=== PATIENT | female | born 1930 | race Caucasian/White ===

== ENCOUNTER 2017-04-23 12:04 | Outpatient (CLI) | payer MEDICARE ==
[~2017-04-23 12:04] MED LIST: Gadobenate Dimeglumine 529 MG/1 ML (20ML VIAL) ONE
--- NOTE | 2017-04-23 15:28 | MRI ---
MRI CERVICAL SPINE NONCONTRAST: HISTORY: Neck pain. Gait and balance abnormalities. FINDINGS: Vertebral body heights are maintained. There is desiccation of all the intervertebral disks. C2-C3: Mild osteophytosis is present. There is mild right and moderate left foraminal stenosis. C3-C4: There is disk space narrowing and minimal degenerative spondylolisthesis. Posterior osteophy te/disk complex effaces the ventral aspect of the thecal sac and contacts but does not significantly compress the spinal cord. Uncovertebral and facet hypertrophy result in moderate right and severe le ft foraminal stenoses. C4-C5: Posterior osteophyte/disk complex slightly effaces the ventral aspect of the thecal sac and s glenn cord. No abnormal signal is apparent within the spinal cord. Uncovertebral and facet hypertro phy result in moderate left foraminal stenosis. C5-C6: There is disk space narrowing. Posterior osteophyte/disk complex slightly flattens the right ventral aspect of the thecal sac and spinal cord. No abnormal signal is apparent within the cord. Uncovertebral and facet hypertrophy result in severe right and mild to moderate left foraminal stenos is. C6-C7: There is disk space narrowing and posterior osteophyte/disk complex with effacement of the th ecal sac but no effect upon the spinal cord. Uncovertebral and facet hypertrophy result in moderate to severe right and moderate left foraminal stenosis. C7-T1: There is minimal degenerative spondylolisthesis. The central canal and neural foramina are p atent. IMPRESSION: 1. Prominent multilevel degenerative changes throughout the spinal cord, with central canal and fora ronni stenosis, as detailed above. If radicular symptoms are present, please consider a neurosurgica l evaluation. 2. No evidence of myelomalacia. POS: [facility]
--- NOTE | 2017-04-23 15:39 | MRI ---
MRI LUMBAR SPINE NONCONTRAST: HISTORY: Gait and balance abnormalities. Back pain. FINDINGS: Radiographs are not available for direct correlation; therefore, the lowest lumbar type vertebra will be designated as L5, with the remainder numbered accordingly. The conus medullaris has a normal henry earance. Degenerative changes of the lower thoracic spine are partially visualized. T12-L1: There is disk space narrowing. Posterior disk bulge and circumferential degenerative change s result in mild stenosis of the central canal and each neural foramen. L1-L2: There is disk space narrowing. Posterior disk bulge and circumferential degenerative changes result in moderate stenosis of the central canal and each neural foramen. L2-L3: Mild chronic appearing compression of the L3 superior endplate results in loss of height ante riorly by approximately 30%. No residual edema is apparent. posterior disk bulge and circumferentia l degenerative changes result in very severe stenosis of the central canal and severe stenosis of eac h neural foramen. L3-L4: There is disk space narrowing and minimal degenerative spondylolisthesis. Posterior disk bul ge and circumferential degenerative changes result in severe stenosis of the central canal and each n eural foramen. L4-L5: There is disk space narrowing. Posterior disk bulge, along with facet joint hypertrophy and ligamentous thickening, result in severe stenosis of the central canal and each neural foramen. L5-S1: There is disk space narrowing. Posterior disk bulge, along with facet joint hypertrophy and ligamentous thickening, result in moderate stenosis of the central canal. There is moderate right an d severe left foraminal stenoses. IMPRESSION: 1. Severe multilevel degenerative changes throughout the lumbar spine, with central canal and forami nal stenosis as detailed above. Please consider neurosurgical evaluation. 2. Mild chronic appearing compression of the L3 superior endplate. POS: [facility]
--- NOTE | 2017-04-23 15:39 | RAD ---
LUMBAR SPINE RADIOGRAPHS FOUR VIEWS: 04/23/17 PROVIDED CLINICAL HISTORY: Lumbar radiculopathy. FINDINGS: Five nonribbearing lumbar type vertebral bodies are present. There is age indeterminate compression deformity involving the L3 vertebral body. There is slight anterolisthesis of L3 on L4 in flexion, wh ich appears to reduce with extension and neutral positioning. No additional abnormal translational mo tion is evident. There is diffuse loss of disc space height with end plate degenerative change. Multi level lumbar facet degenerative changes are seen. Atherosclerosis is noted. Pedicles appear intact. IMPRESSION: 1. Age indeterminate superior end plate compression deformity of L3. 2. Multilevel lumbar disc and facet degenerative change. POS: [facility]
--- NOTE | 2017-04-23 15:47 | MRI ---
MRI THORACIC SPINE: Date: 04-23-17 Provided Clinical History: Thoracic radiculopathy. FINDINGS: Thoracic alignment appears normal. Vertebral body heights appear preserved. No focal concerning regio nal marrow abnormality. The thoracic spinal cord demonstrates normal signal and morphology. There are broad based disc bulges at T11-12 and T12-L1 associated with mild central canal stenosis. There is n o significant foraminal narrowing apparent. IMPRESSION: Lower lumbar thoracic degenerative changes with mild associated central canal stenosis. POS: [facility]
--- NOTE | 2017-04-23 15:52 | MRI ---
BRAIN MRI WITH AND WITHOUT CONTRAST: HISTORY: Meniere's disease. Frequent and multiple falls. COMPARISON: 06/27/2014 TECHNIQUE: A brain MRI is performed with and without intravenous Gadolinium administration. Multisequential, mu ltiplanar imaging is performed. FINDINGS: There is hypointensity along the anterior right frontal lobe and anterior right temporal pole, along the posterior right corpus callosum and adjacent to the medial aspect of the posterior body of the ri ght lateral ventricle. These areas of hypointensity are not present on the prior examination and may represent hemosiderin from previous insult. An additional area of hemosiderin may be present in the right subinsular region. Acute parenchymal hemorrhage is not appreciated. There is no parenchymal mass, mass effect, or midline shift. Age appropriate atrophy. Cortical perdomo white matter differentiation is preserved. Ventricles and sulci are patent and symmetric. The ventricular system is slightly greater than expec landon for the patient's age. Correlate for normal pressure hydrocephalus. On the axial T2 and FLAIR sequence, there are white matter hyperintensities, which are presumed to be due to chronic small vessel ischemic change. A component of transependymal flow of CSF cannot be ex cluded. Central arterial flow voids are maintained. Absent restricted diffusion. Adequate aeration of the sinuses and mastoid air cells. No pathologic enhancement of the brain parenchyma. IMPRESSION: 1. Hemosiderin deposition in multiple areas, worrisome for remote hemorrhage due to remote intracran ial sequelae. 2. Age appropriate atrophy. 3. Chronic small vessel ischemic changes of the white matter. 4. Prominence of the ventricular system, greater than expected for the degree of atrophy. Correlate for normal pressure hydrocephalus. POS: [facility]
== END 2017-04-23 12:05 | disposition home or self-care (01) ==
LOC: SCSMRI 12:04
PROVIDERS: ATTEND Physician Assistant Surgical
DX: M47.26 Other spondylosis with radiculopathy, lumbar region (principal); M47.24 Other spondylosis with radiculopathy, thoracic region; M47.22 Other spondylosis with radiculopathy, cervical region; R27.0 Ataxia, unspecified; I67.82 Cerebral ischemia; G31.9 Degenerative disease of nervous system, unspecified; M48.04 Spinal stenosis, thoracic region; M48.061 Spinal stenosis, lumbar region without neurogenic claudication; M99.53 Intervertebral disc stenosis of neural canal of lumbar region; M48.02 Spinal stenosis, cervical region; M99.51 Intervertebral disc stenosis of neural canal of cervical region
CPT/HCPCS: 70553; 72120; 72141; 72146; 72148; A9579

== ENCOUNTER 2017-08-08 12:15 | Outpatient (CLI) | payer MEDICARE ==
[2017-08-08 15:36] LABS: Mean Corpuscular HGB CONC 33.4 g/dL (32.0-36.0); Mean Corpuscular Hemoglobin 30.8 pg (27.0-31.0); Mean Corpuscular Volume 92.3 fl (81.0-99.0); Mean Platelet Volume 8.7 fL (7.4-10.4); Platelet Count 233 thou/uL (130-400); RBC Distribution Width 13.1 % (11.5-14.5); Red Blood Cell (RBC) Count 4.24 mill/uL (4.20-5.40); White Blood Cell (WBC) Count 6.9 thou/uL (4.8-10.8)
[2017-08-08 15:54] LABS: Anion Gap 15 mmol/L (10-20); BUN (Urea Nitrogen) 29 mg/dL (9.8-20.1); Calc. Creatinine Clearance 0 mL/min (70-130); Calcium 9.3 mg/dL (7.8-10.44); Carbon Dioxide 23 mmol/L (23-31); Chloride 106 mmol/L (98-107); Estimated GFR-MDRD 39; Glucose 77 mg/dL (83-110); Potassium 4.6 mmol/L (3.5-5.1); Sodium 139 mmol/L (136-145)
[2017-08-08 15:57] LABS: Prothrombin Time 13.1 SEC (12.0-14.7)
== END 2017-08-08 12:16 | disposition home or self-care (01) ==
LOC: LABBT 12:15
PROVIDERS: ATTEND Surgery
DX: Z01.818 Encounter for other preprocedural examination (principal); M54.16 Radiculopathy, lumbar region; M48.061 Spinal stenosis, lumbar region without neurogenic claudication
CPT/HCPCS: 80048; 85027; 85610; 85730; 93005; 93010

== ENCOUNTER 2017-08-14 09:05 | Day surgery (SDC) | payer MEDICARE ==
[2017-08-08 13:10] VITALS: BMI 25.6
[2017-08-14] MEDS ORDERED: CEFAZOLIN/Water 2 GM/20 ML SYRINGE ONE (11:40)
[2017-08-14] MEDS ORDERED: Fentanyl 100 MCG/2 ML VIAL ONE ×2 (12:11→13:24)
[2017-08-14] MEDS ORDERED: Bacitracin Zinc Ointment 30 gm TUBE ONE (12:32)
[2017-08-14] MEDS ORDERED: Thrombin 5000 UNITS/5 ML VIAL ONE (12:32)
[2017-08-14] MEDS ORDERED: Sodium Chloride 0.9% 10 ML ONE (12:32)
[2017-08-14] MEDS ORDERED: Phenylephrine HCL 10 MG/ML VIAL ONE (12:35)
[2017-08-14] MEDS ORDERED: Ondansetron HCl/PF 4 MG/2 ML Vial ONE ×2 (14:56→16:41)
[2017-08-14] MEDS ORDERED: HYDROmorphone 0.5 MG/0.5 ML SYRINGE ONE ×2 (14:56→15:48)
[2017-08-14] MEDS ORDERED: Milk Of Magnesia 30 ML UDCUP PO PRN (16:10)
[2017-08-14] MEDS ORDERED: traMADol HCl 50 MG TAB PO PRN (16:10)
[2017-08-14] MEDS ORDERED: Acetaminophen 325 MG TAB PO PRN (16:10)
[2017-08-14] MEDS ORDERED: Morphine 4 MG/ML VIAL SLOW IVP PRN (16:10)
[2017-08-14] MEDS ORDERED: Acetaminophen/Codeine 30-300mg Tablet PO PRN (16:10)
[2017-08-14] MEDS ORDERED: Fleet Enema 133 ML BOT PR PRN (16:10)
[2017-08-14] MEDS ORDERED: tiZANidine HCl 4 MG TAB PO PRN (16:10)
[2017-08-14] MEDS ORDERED: HYDROcodone/Acetaminophen 7.5/325 mg Tablet PO PRN (16:10)
[2017-08-14] MEDS ORDERED: Promethazine HCl 25 MG/ML VIAL IM PRN ×2 (16:10→16:29)
[2017-08-14] MEDS ORDERED: Mag-Al 1200 mg/1200 mg/30 ML UDCUP PO PRN (16:10)
[2017-08-14] MEDS ORDERED: Bisacodyl 10 MG SUPP PR PRN (16:10)
[2017-08-14] MEDS ORDERED: Loratadine 10 MG TAB PO PRN (16:12)
[2017-08-14] MEDS ORDERED: Fluticasone Propionate Nasal Spray 16 gm Bottle NASAL PRN (16:12)
[2017-08-14] MEDS ORDERED: Meperidine HCl/PF 25 MG/ML VIAL SLOW IVP PRN (16:29)
[2017-08-14] MEDS ORDERED: HYDROmorphone 2 MG/ML VIAL SLOW IVP PRN (16:29)
[2017-08-14] MEDS ORDERED: Ondansetron HCl/PF 4 MG/2 ML Vial IVP PRN (16:29)
[2017-08-14] MEDS ORDERED: Promethazine HCl 25 MG/ML VIAL SLOW IVP PRN (16:29)
[2017-08-14] MEDS ORDERED: Morphine Sulfate 2 MG/ML SYRINGE SLOW IVP PRN (16:29)
[2017-08-14] MEDS ORDERED: Esmolol 100 MG/10 ML VIAL ONE (16:41)
[2017-08-14] MEDS ORDERED: PROPOFOL 200 MG/20 ML VIAL ONE (16:41)
[2017-08-14] MEDS ORDERED: PHENYLEPHRINE-NS 100 MCG/ML 10 ML SYRINGE ONE (16:41)
[2017-08-14] MEDS ORDERED: Glycopyrrolate 0.2 MG/ML 5 ML SYRINGE ONE (16:41)
[2017-08-14] MEDS ORDERED: Lidocaine 1% PF 5 ML VIAL ONE (16:41)
[2017-08-14] MEDS ORDERED: CEFAZOLIN/Water 2 GM/20 ML SYRINGE SLOW IVP SCH (17:00)
[2017-08-14] MEDS: Sodium Chloride 0.9% 1,000 ML IV SCH (18:40)
[2017-08-14] MEDS: Losartan 25 MG TAB PO SCH (21:46)
[2017-08-14] MEDS: CEFAZOLIN/Water 2 GM/20 ML SYRINGE SLOW IVP SCH (21:46)
[2017-08-14] MEDS: DULoxetine 60 MG CAP PO SCH (21:46)
[2017-08-14] MEDS: Pramipexole Di-HCl 0.25 MG TAB PO SCH (21:47)
[2017-08-15] MEDS: CEFAZOLIN/Water 2 GM/20 ML SYRINGE SLOW IVP SCH (05:17)
[2017-08-15] MEDS: Sodium Chloride 0.9% 1,000 ML IV SCH ×2 (05:17→17:07)
[2017-08-15] MEDS: Calcium Carbonate 500 MG TAB PO SCH (09:52)
--- NOTE | 2017-08-15 19:40 | PRG ---
DATE OF SERVICE: 08/15/2017 Ms. Darden is postoperative day #1 from L2-S1 decompressive laminectomy, partial facetectomy, and f oraminotomies. She states she has no leg pain and that she "feels her legs better than she has in ye ars." She has good strength. She has not yet mobilized. Her Manrique catheter has been removed. We w ill plan to mobilize her today, although admittedly I [facility]. One option is going home with her son, although I thin k it important to maximize her rehab potential and appropriate consultations have been placed.
--- NOTE | 2017-08-15 20:20 | OP ---
DATE OF SURGERY: 08/14/2017 SURGEON: Cristofer Stark M.D. G[employer] SEALING MACHINE OPERATOR: Nestor Cornelius PA-C. PREPROCEDURE DIAGNOSES: Multilevel lumbar stenosis with low back and leg pain and weakness. POSTPROCEDURE DIAGNOSES: Multilevel lumbar stenosis with low back and leg pain and weakness. PROCEDURE: L2-L3, L3-L4, L4-L5, L5-S1 laminectomies, partial facetectomies and foraminotomies of the L2, L3, L4, L5 and S1 nerve roots. DESCRIPTION OF PROCEDURE: After informed consent was obtained from the patient, the patient was brou ght to OR. Proper patient pause and identification was carried out. She was placed in excellent gen eral endotracheal anesthesia and positioned prone on the operating table. Linear marlene was made over the L2, L3, L4, L5 and S1 dorsal spines. This region was sterilely cleansed, prepared, and draped. Proper patient pause and identification was carried out. The wound was then opened in combination of sharp, monopolar and blunt dissection. The L3, L4, L5 and S1 dorsal spines lamina were exposed. Lo calization film confirmed our area of interest. We then performed L3, L4, L5 and S1 dorsal laminecto mies, partial facetectomies, foraminotomies over all of those nerve roots. We were satisfied with th e decompression. Hemostasis was maximized throughout. Copious irrigation occurred. There was no CS F leak. The wound was then closed in anatomic layers following meticulous hemostasis and sprinkling of vancomycin powder. The patient then emerged from anesthesia.
[2017-08-15] MEDS: DULoxetine 60 MG CAP PO SCH (20:34)
[2017-08-15] MEDS: Pramipexole Di-HCl 0.25 MG TAB PO SCH (20:34)
[2017-08-15] MEDS: Losartan 25 MG TAB PO SCH (20:34)
--- NOTE | 2017-08-16 07:34 | PRG ---
DATE OF SERVICE: 08/16/2017 SUBJECTIVE: Ms. Darden is now 3 days out from a lumbar laminectomy. She did not get out of bed wi physical therapy yesterday per her report. She does not recall standing or walking to the restroo m. She tells me her back is sore, but she is unsure whether her legs feel better after the decompres dominick. My plan for Ms. Darden is to increase her activity with the help of physical therapy if her vitals remain stable and she is able to participate in 3 hours of therapy a day, she would be a good niharika te for inpatient rehabilitation. If she is unable to participate not much therapy, then placement in a [facility] facility is likely to benefit her. I think she is unsafe to go home quite yet, bu t if she makes tremendous progress over the next day or two, then that could be a disposition option as well.
--- NOTE | 2017-08-16 08:02 | PRG ---
DATE OF SERVICE: 08/16/2017 SUBJECTIVE: Ms. Darden is an 87-year-old female who I saw in her room this morning. When I entere d the room, she was sitting on the side of her bed, getting up with assistance x2, on her way to the bathroom. Her incision is clean, dry, and intact. Yesterday, she did not ambulate much, so today, caitie ortega are going to have physical therapy work with her and ambulate her as much as possible. She does bower ve the opportunity with the ability to go home with her son; however, I do not think at this point anjali ortega is ready to be discharged. She is unable to walk without assistance at this point, she is using a walker. Rehab has been consulted and we are waiting for rehab screen to setup placement in inpatient rehabilitation postoperatively. Overnight, her vital signs have been stable and she is afebrile. T here are no new labs this morning. On her neurologic exam, she has no new neurologic deficits. She has good strength and sensation bilaterally in the lower extremities. We will see how she does with physical therapy today and await rehab consultation. If there are any further questions, please feel free to contact Neurosurgery.
[2017-08-16] MEDS: Sodium Chloride 0.9% 1,000 ML IV SCH (09:48)
[2017-08-16] MEDS: Calcium Carbonate 500 MG TAB PO SCH (09:49)
[2017-08-16 12:07] VITALS: TEMP 98.3
[2017-08-16 16:10] VITALS: BP 124/68
== END 2017-08-16 18:55 ==
LOC: SDC 09:05 → SURG A 16:10 → SDC 08-16 18:55
PROVIDERS: ATTEND Surgery
PROC: 01NB0ZZ Release Lumbar Nerve, Open Approach (ICD-10-PCS; principal; 2017-08-14)
DX: M48.061 Spinal stenosis, lumbar region without neurogenic claudication (principal); I10 Essential (primary) hypertension; E78.5 Hyperlipidemia, unspecified; M19.90 Unspecified osteoarthritis, unspecified site; F32.9 Major depressive disorder, single episode, unspecified; F41.9 Anxiety disorder, unspecified; Z79.899 Other long term (current) drug therapy
CPT/HCPCS: 76001; A4216; G8978-GP-CK; G8979-GP-CI; G8987-GO-CK; G8988-GO-CI; J0131; J1170; J2001; J2370; J2405; J2704; J3010; J3370; J3490

== ENCOUNTER 2018-06-25 13:00 | Emergency (ER) | payer MEDICARE ==
--- NOTE | 2018-06-25 14:33 | RAD ---
LEFT HIP 2 VIEWS: HISTORY: Hip pain. FINDINGS: There are arthritic changes of the hip. There is some minimal osteophytic change along the acetabulu m. Minimal joint space narrowing is seen. Bones appear demineralized. IMPRESSION: Mild arthritic changes of the hip. POS: [facility]
--- NOTE | 2018-06-25 14:34 | ULT ---
LEFT LOWER EXTREMITY VENOUS ULTRASOUND: History: Left leg pain and edema in the left lower extremity. Technique: Multiplanar grayscale and color doppler images were obtained in a left lower extremity rodrigo ous ultrasound. Spectral analysis and doppler waveforms were performed. FINDINGS: The left common femoral vein, profunda femoral vein, superficial femoral vein, and popliteal vein are normal in appearance without visible thrombus. These vessels demonstrate normal compression, flow, a nd augmentation. The posterior tibial vein and greater saphenous vein are patent. IMPRESSION: No evidence of left lower extremity DVT. POS: [facility]
--- NOTE | 2018-06-26 11:45 | RAD ---
LEFT KNEE FOUR VIEWS: History: Knee pain. FINDINGS: There are mild arthritic changes of the hip. There is moderate to severe medial compartment narrowing . There is also spurring of the lateral and patellofemoral compartments. No joint effusion or fractur e. IMPRESSION: Moderate arthritic changes of the knee. POS: [facility]
== END 2018-06-25 14:53 | disposition home or self-care (01) ==
LOC: SCSER 13:00
DX: M79.89 Other specified soft tissue disorders (principal); I10 Essential (primary) hypertension; H81.09 Meniere's disease, unspecified ear; Z79.899 Other long term (current) drug therapy